=== PATIENT | female | born 1960 | race Caucasian/White ===

== ENCOUNTER 2021-12-19 13:45 | Outpatient (CLI) | payer MEDICARE, BC, SELFPAY ==
--- NOTE | 2021-12-19 14:00 | CRLHL7_ITS ---
For Patients: As a result of the Century Cures Act, medical imaging exams and procedure reports are released immediately into your electronic medical record. You may view this report before your referring provider. If you have questions, please contact your health care provider. BILATERAL SCREENING MAMMOGRAM WITH COMPUTER-AIDED DETECTION AND TOMOSYNTHESIS TECHNIQUE: CC and MLO views were obtained. These mammographic images have been obtained using full-field digital technique. These mammographic images were interpreted with the benefit of computer-aided detection. Breast Tomosynthesis was used in this interpretation. COMPARISON FILM: 12/10/18, 10/15/17, 09/19/16. FINDINGS: There are scattered areas of fibroglandular density IMPRESSION: There is no radiographic evidence for malignancy. ASSESSMENT: BI-RADS Category 2: Benign RECOMMENDATION: Routine screening mammogram in 1 year. A lay language report of this examination will be provided to the patient. Michael Caballero M.D. Diagnostic Radiologist [email or web address] LEEANN/Dictated by: Michael Caballero MD @ 12/20/2021 9:09:00 AM (Electronically Signed)
== END 2021-12-19 13:46 | disposition home or self-care (01) ==
LOC: MAMMO 13:46
PROVIDERS: PCP Internal Medicine; Visit Provider Nurse Practitioner Family
DX: Z12.31 Encounter for screening mammogram for malignant neoplasm of breast (principal)
CPT/HCPCS: 77063; 77067

== ENCOUNTER 2022-12-20 13:54 | Outpatient (CLI) | payer MEDICARE, BC, SELFPAY ==
--- NOTE | 2022-12-20 14:00 | CRLHL7_ITS ---
For Patients: As a result of the Cures Act, medical imaging exams and procedure reports are released immediately into your electronic medical record. You may view this report before your referring provider. If you have questions, please contact your health care provider. BILATERAL SCREENING MAMMOGRAM WITH COMPUTER-AIDED DETECTION AND TOMOSYNTHESIS TECHNIQUE: CC and MLO views were obtained. These mammographic images have been obtained using full-field digital technique. These mammographic images were interpreted with the benefit of computer-aided detection. Breast Tomosynthesis was used in this interpretation. COMPARISON FILM: 12/19/21, 12/10/18, 10/15/17. FINDINGS: There are scattered areas of fibroglandular density IMPRESSION: There is no radiographic evidence for malignancy. ASSESSMENT: BI-RADS Category 2: Benign RECOMMENDATION: Routine screening mammogram in 1 year. A lay language report of this examination will be provided to the patient. Michael Caballero M.D. Diagnostic Radiologist [email or web address] SONIA/rolando Transcribed: 3:40 p.mSamantha marshall/Dictated by: Michael Caballero MD @ 12/21/2022 12:42:00 PM (Electronically Signed)
== END 2022-12-20 13:55 | disposition home or self-care (01) ==
LOC: MAMMO 13:56
PROVIDERS: PCP Internal Medicine; Visit Provider Nurse Practitioner Family
DX: Z12.31 Encounter for screening mammogram for malignant neoplasm of breast (principal)
CPT/HCPCS: 77063; 77067

== ENCOUNTER 2023-02-07 13:55 | Outpatient (CLI) | payer MEDICARE, BC, SELFPAY ==
--- NOTE | 2023-02-07 14:00 | CRLHL7_ITS ---
For Patients: As a result of the Century Cures Act, medical imaging exams and procedure reports are released immediately into your electronic medical record. You may view this report before your referring provider. If you have questions, please contact your health care provider. 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 Current height (in): 63.5. Weight (lb): 220.0. Menopause age: 47. Ethnicity: White. 1. Have you had a previous hip or vertebral fracture? No. 2. Have you had any fractures during your adult life which did not result from significant trauma (e.g., auto accident)? No. 3. Did either of your parents have a hip fracture? No. 4. Do you smoke? No. 5. Have you ever taken Glucocorticoids? No. 6. Do you have rheumatoid arthritis? No. 7. Do you have secondary osteoporosis? No. 8. Do you drink 3 or more alcoholic drinks per day? No. 9. Are you being treated for osteoporosis? No. 10. Have you ever taken any of the following medications: Actonel, Evista, Fosamax, Miacalcin, Reclast, Boniva, Forteo, HRT (i.e. estrogen/hormone therapy), Protelos, Prolia, Vitamin D, Calcium, other ??? please specify. ANSWER: Yes, Vitamin D, calcium. 11. Do you have any of the following medical conditions: Anorexia or bulimia, asthma or emphysema, end stage renal disease, hyperparathyroidism, any seizure disorders, cancer, inflammatory bowel diseases, hysterectomy, other ??? please specify. ANSWER: Yes, asthma or emphysema. 12. What was your maximum height (inches)? 65. 13. Do you perform weight bearing exercise regularly? No. 14. Do you regularly consume dairy products? Yes. 15. Do you drink caffeinated beverages? Yes. 16. At what age did your period start? 16. 17. Are you premenopausal? No. 18. How many full term pregnancies have you had? 0 19. Have you ever missed your period for more than 6 months in a row (not including or menopause)? No. TECHNIQUE: Bone mineral density study was performed using the [employer]. FINDINGS: The results of the study expressed as bone mineral density (BMD) are as follows: Lumbar spine L2 to L4: BMD: 1.207 g/cm2. T-score: 1.2. Z-score: 2.7 Neck Left: BMD: 0.788 g/cm2. T-score: -0.5. Z-score: 0.8. Right: BMD: 0.712 g/cm2. T-score: -1.2. Z-score: 0.1. Total Left: BMD: 1.009 g/cm2. T-score: 0.6. Z-score: 1.5. Right: BMD: 0.885 g/cm2. T-score: -0.5. Z-score: 0.5. IMPRESSION: Osteopenia. *Comparison exams done prior to 08/2019 were performed on different unit, [employer]. COMPARISON: Compared with scan of 02/15/2021, the bone mineral density has increased by 9.2 percent at the spine and increased by 8.9 percent at the hip. Compared with scan of 02/12/2019, the bone mineral density has decreased by 0.4 percent at the spine and increased by 8.8 percent at the hip. FRAX 10-year Fracture Risk Major Osteoporotic Fracture: 6.7 percent Hip Fracture: 0.4 percent Reported Risk Factors: [place] () Neck BMD=0.712, BMI=38.4 Michael Caballero M.D. Diagnostic Radiologist [email or web address] DSM/pjt PT/Dictated by: Michael Caballero MD @ 02/08/2023 12:34:00 PM (Electronically Signed)
== END 2023-02-07 13:56 | disposition home or self-care (01) ==
LOC: RAD 13:55
PROVIDERS: PCP Internal Medicine; Visit Provider Nurse Practitioner Family
DX: Z79.811 Long term (current) use of aromatase inhibitors (principal); M85.89 Other specified disorders of bone density and structure, multiple sites
CPT/HCPCS: 77080

== ENCOUNTER 2023-03-14 14:50 | Outpatient (RCR) | payer MEDICARE, BC, SELFPAY | END 2023-03-27 23:59 | disposition home or self-care (01) | LOC: CCIC 14:50 | PROVIDERS: PCP Internal Medicine; Visit Provider Physician Assistant | DX: D05.12 Intraductal carcinoma in situ of left breast (principal); Z17.0 Estrogen receptor positive status [ER+]; Z79.811 Long term (current) use of aromatase inhibitors; M85.80 Other specified disorders of bone density and structure, unspecified site; F31.9 Bipolar disorder, unspecified | CPT/HCPCS: 99212; 99214 ==

== ENCOUNTER 2023-09-10 14:00 | Outpatient (RCR) | payer MEDICARE, BC, SELFPAY ==
--- NOTE | 2023-08-09 07:29 | PT.OPEX ---
PT [facility] Eval PT [facility] Outpatient Eval Start: 08/08/23 10:40 Freq: Status: Active Protocol: Document 08/08/23 10:41 CRP (Rec: 08/08/23 15:47 CRP [id number]) E-signed By Eduardo Bolanos PT Physical Therapy Outpatient Evaluation Insurance Information Recert Due Date 11/06/23 Insurance Name Medicare B Medical Diagnosis LBP Referring MD Dr Sykes Subjective Subjective Pt has been having sharp severe pain at low back and off to the L side. Has been since this Winter. No known injury. Pain is along the left flank and down into the L thigh. Is taking over the counter NSAIDS. Pt reports that mornings are severely painful at her back. Overall she is improved and she has not been getting recent pain down her LE. Although improved , she still struggles with getting out to do anything. Especially things where she will need to stand and mill around. Sitting is the most comfortable. Holding onto cart at grocery store is really helpful. Pt has had back pain off and on for 30+ years. Bilat TKA: 2015, 2018 Pain Comments 11/08 Current Work Status Unemployed Objective Other/Pertinent Objective Trunk ROM: flex WNL, Ext mod/ kayy dec, R SB WNL, L SB mod dec with pain. Bilat rot min/ mod dec. Hip ROM WNL bilat MMT: myotomes functioning. BIlat hip ext and bilat hip abd 4-/5. Trunk flex 3+/5. Trunk ext 4-/5. SLR negative bilat Segmental mobility testing: shows restriction without pain into L rotation. SL UPAs L lower lumbar spine painful. Assessment Assessment/Impression Pt presents to the clinic with signs and sxs consistent with lumbar spine stenosis and resulting low back related LE sxs. Pts presentation is characterized by painful loss of trunk ROM, trunk and LE weakness, painful hypomobility of the lower lumbar spine segments and is generally deconditioned. Skilled PT is necessary to incorporate ther ex, nm sterling, manual therapy and pt education to decrease pain and improve functional mobility. Primary Functional Limitations Standing Walking Bending Lifting Plan of Care Rehabilitation Potential Good Physical Therapy Goals 1. Pt will be independent with HEP in 8 weeks. 2. Pt will walk for 15 minutes for exer with 80% decrease in pain in 10 weeks. 3. 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 Coordination/Communication With Referral Source Treatment Plan/Direct Interventions Joint Mobilization,Manual Therapy,Neuromuscular Re-ed, Self-Care/Home Management, Therapeutic Activities, Therapeutic Exercises Frequency/Duration 1-2x/wk for 12 weeks Patient Will Be Discharged From Therapy Completion of LTG(s),Skills Plateau,Independent w/HEP, Independently Progressing Evaluation Billing Untimed Code Treatment Minutes 40 Complexity Moderate Certification Information Initial Certification Date 08/08/23 Ending Certification Date 11/06/23 Provider Signature Shows Agreement With POC & Medical Necessity Physician Signature & Date Requested Please Sign/Date Here Physician Comment/Change : Physician NPI Number #
== END 2024-01-08 23:59 | disposition home or self-care (01) ==
PROVIDERS: PCP Internal Medicine; Visit Provider Family Medicine
DX: M54.50 Low back pain, unspecified (principal); Z51.89 Encounter for other specified aftercare
CPT/HCPCS: 97110; 97140; 97162

== ENCOUNTER 2023-09-12 13:59 | Outpatient (RCR) | payer MEDICARE, BC, SELFPAY ==
--- NOTE | 2024-03-06 13:25 | ONC.NURNOTE ---
Patient called wondering if she is able to stop her anastrozole now that she is five years out. Note from CINDY was printed and will be reviewed with her on . Patient aware that nursing will call following this conversation.
== END 2024-03-10 23:59 | disposition home or self-care (01) ==
LOC: CCIC 13:59
PROVIDERS: PCP Internal Medicine; Visit Provider Physician Assistant
DX: D05.12 Intraductal carcinoma in situ of left breast (principal); Z17.0 Estrogen receptor positive status [ER+]; M85.80 Other specified disorders of bone density and structure, unspecified site; Z79.811 Long term (current) use of aromatase inhibitors
CPT/HCPCS: 99214; G0463

== ENCOUNTER 2023-12-04 13:49 | Outpatient (CLI) | payer MEDICARE, BC, SELFPAY ==
--- OUTSIDE RECORDS SUMMARY | 2023-12-04 13:51 | XMS_ITS | Clinical Summary ---
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 Max acetaminophen dose: 4000mg in 24 hrs. 0 Active anastrozole (ARIMIDEX) 1 mg tablet Take 1 mg by mouth once daily. 3 02/17/2019 Active benztropine (COGENTIN) 1 mg tabletIndications: Drug-induced parkinsonism (HC) Take 1 Tablet (1 mg) by mouth at bedtime. 90 Tablet 1 06/23/2020 Active clonazePAM (KLONOPIN) 1 mg tabletIndications: Bipolar 1 disorder (HC) Take 1 Tablet (1 mg) by mouth 2 times daily if needed for Anxiety. 30 tablets to last 30 days. 30 tablet. 5 06/23/2020 Active escitalopram oxalate (LEXAPRO) 20 mg tabletIndications: Anxiety Take 1 Tablet (20 mg) by mouth every morning. 90 tablet. 1 06/23/2020 Active risperiDONE (RISPERDAL) 2 mg tabletIndications: Bipolar 1 disorder (HC) Take 1 Tablet (2 mg) by mouth 2 times daily. 180 tablet. 1 06/23/2020 Active zonisamide (ZONEGRAN) 100 mg capsuleIndications :Essential tremor TAKE 2 CAPSULES BY MOUTH AT BEDTIME 180 Capsule 09/27/2020 Active mirtazapine (REMERON) 15 mg tabletIndications: Bipolar 1 disorder (HC),Anxiety,Insom jazmine, idiopathic TAKE 1 TABLET(15 MG) BY MOUTH AT BEDTIME 30 Tablet 10/01/2020 Active fluticasone (50 mcg per actuation) nasal solution (FLONASE)Indicatio ns:Seasonal allergic rhinitis due to pollen SHAKE LIQUID AND USE 2 SPRAYS IN EACH NOSTRIL DAILY 48 g 1 01/03/2021 Active montelukast (SINGULAIR) 10 mg tabletIndications: Seasonal allergic rhinitis due to pollen TAKE 1 TABLET(10 MG) BY MOUTH EVERY MORNING 90 Tablet 06/25/2021 Active Active Problems Problem Noted Date Diagnosed Date 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 03/16/2020 Ductal carcinoma in situ (DCIS) of breast 2018 Cancer Staging:Pathologic: pT1mi, pN0, cM0, G2, ER+ - Signed by Milady Siu MD on 01/09/2019 Status post total knee replacement, unspecified laterality 09/03/2018 Controlled substance agreement signed 09/11/2017 Overview: 09/11/17 signed Minnie Taveras MD/psychiatry Bipolar 1 disorder 08/14/2016 Psychophysiological insomnia 08/14/2016 Drug-induced parkinsonism 08/14/2016 History of extrapyramidal symptoms 08/14/2016 Immunizations Name Administration Dates Next Due Influenza Virus, Unspecified 01/07/2020, 12/07/2017,01/16/2017,2015,01/13/2015 Influenza, IIV3 (Age 6-35 mos) 01/16/2017 Influenza, IIV4 12/22/2015 Influenza, IIV4 (=>6mos) MDV 12/26/2018,12/21/19 Pneumococcal Poly,23-Valent (Pneumovax) 06/18/2018 Tdap 07/07/2018 Zoster (Shingrix-RZV, recombinant) 09/17/2018, Family History Medical History Relation Name Comments Brain cancer Maternal Grandfather Abnormal EKG Paternal Grandfather Cancer Paternal Grandmother digesti ve tract Cancer-breast No Family History Cancer-colon No Family History Cancer-ovarian No Family History Cancer-pancreatic No Family History Cancer-prostate No Family History Melanoma No Family History Relation Name Status Comments Maternal Grandfather Paternal Grandfather Paternal Grandmother Social History Tobacco Use Types Packs/Day Years Used Date Smoking Tobacco: Former Cigarettes 1 983 - 2001 Smokeless Tobacco: Never Tobacco Cessation:Counseling Given: Yes Alcohol Use Standard Drinks/Week Comments Not Currently 0 (1 standard drink = 0.6 oz pur e alcohol) Very occasional PHQ-2 Answer Date Recorded PHQ-2 TOTAL SCORE 2 06/23/2020 Social Connections Answer Date Recorded Frequency of Communication with Friends and Fami ly Not on file 04/01/2021 Financial Resource Strain Answer Date R ecorded Difficulty of Paying Living Expenses Not on file 04/01/2021 Difficulty of Paying Living Expenses Not on file 04/01/2021 Sex and Gender Information Value Date Recorded Sex Assigned at Female 01/22/2020 1:27 PM CDT Gender Identity Female 01/22/2020 1:27 PM CDT Sexual Orientation Straight 01/22/2020 1: 27 PM CDT Obstetrics History Para Term AB IAB SAB Ectopic Multiple Livin g Live Births 0 0 0 0 0 0 0 0 0 0 Last Filed Vital Signs Vital Sign Reading Time Taken Comments Blood Pressure 116/75 07/07/2020 1:19 PM CDT Pulse 99 07/07/2020 1:19 PM CDT Temperature 37 ??C (98.6 ??F) 12/15/2020 3:12 PM CDT Respiratory Rate 16 12/15/2020 3:12 PM CDT Oxygen Saturation 95% 07/07/2020 1:19 PM CDT Inhaled Oxygen Concentration - - Weight 102.5 kg (226 lb) 12/15/2020 3:12 PM CDT Height 163.8 cm (5' 4.5) 12/15/2020 3:12 PM CDT Body Mass Index 38.19 12/15/2020 3:12 PM CDT Plan of Treatment Health Maintenance Due Date Last Done Comments HIV for age 15-65 1977 Hepatitis C screening for age 18-79 1980 Fecal testing non-DNA (FIT,FOBT,iFOBT) for age 45-75 01/28/2021 01/29/2020, 09/10/2016 Depression screening for age 12+ 06/27/2021 06/27/2020, 06/24/2020, 06/24/2020, Additional history exists BMI (ht and wt on same day) for age 18+ 12/15/2021 12/15/2020, 06/14/2020, 02/11/2020, Additional history exists Mammogram for age 45-75 12/15/2021 12/16/19 21, 12/15/2019, 07/30/2019, Additional history exists COVID-19 vaccine series ( season) 2023 07/12/2020, 06/10/2020 Influenza for age 50-64 12/01/2023 01/07/20, 12/26/2018, 12/20/2017, Additional history exists Pap test for age 21-65 12/08/2023 , 12/07/2020, 09/29/2020, Additional history exists Lipids for age 45-75 04/28/2025 04/28/2020, 01/01/2019, 09/27/2017 Tetanus booster 07/07/2028 07/07/2018 Pneumococcal series for age 6-64 Aged Out 06/18/2018 No longer eligible based on patient's age to complete this topic Tdap Completed 07/07/2018 Zoster (shingles) series for age 50+ Completed 09/17/2018, 06/18/2018 Procedures Procedure Name Priority Date/Time Associated Diagnosis Comments XR MAMMO JAVON BILAT SCREEN Routine 12/15/2020 2:59 PM CDT Visit for screening mammogram Personal history of malignant neoplasm of breast HPV THIN PREP Routine 12/07/2020 1:10 PM CDT LIPID PANEL W REFLEX MEASURED LDL Routine 04/28/2020 11:04 AM 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 ??Recommend annual mammograms. MAMMOGRAM ASSESSMENT: ??ACR 1 Negative PATIENTS: You will also receive a letter with your examination results in an easy to read format. ??If you have questions about your results, please contact your referring provider. Narrative 12/15/2020 3:07 PM CDT For Patients: As a result of the Century Cures Act, medical imaging exams and procedure reports are released immediately into your electronic medical record. You may view this report before your referring provider. If you have questions, please contact your health care provider. XR MAMMO JAVON BILAT SCREEN [[id number]] CLINICAL HISTORY: ??This is an asymptomatic 60 y.o. patient. INDICATION FOR EXAM: Mammogram Screening. TECHNIQUE: CC & MLO views were obtained. ??This study was evaluated with the assistance of Computer-Aided Detection. Breast Tomosynthesis was used in interpretation. COMPARISON FILM: Yes 12/15/19 [place] ?? FINDINGS: ??The breasts have scattered areas of fibroglandular density. There are no dominant masses, suspicious micro calcifications or areas of architectural distortion. Shahla Mcclellan RN LICENSED PRACTICAL MAMMO * HPV HIGH RISK (12/07/2020 1:10 PM CDT) TYPE 16 Negative Negative 12/12/2020 11:22 AM CDT [facility] TYPE 18 Negative Negative 12/12/2020 11:22 AM CDT [facility] OTHER HIGH RISK TYPES Negative Negative 12/12/2020 11:22 AM CDT [facility] Other (Cervical/Vagina l) 12/07/2020 1:10 PM CDT 12/08/2020 5:12 PM CDT Narrative [facility] - 12/12/2020 11:22 AM CDT HPV types 16, 18, 31, 33, 35, 39, 45, 51, 52, 56, 58, 59, 66 and 68 DNA were undetectable or below the pre-set threshold. Methodology: Ruth Amina 4800 HPV Test Lisa Hawkins MD MICROBIOLOGY [facility] [address] [place] [address], [place] * LIPID PANEL W REFLEX MEASURED LDL (04/28/2020 11:04 AM BAND SEWER) CHOLESTEROL,TOTAL 176 100 - 199 mg/dL 04/28/2020 5:11 PM BAND SEWER [facility] TRIGLYCERIDES 95 <150 mg/dL 04/28/2020 5:11 PM BAND SEWER [facility] HDL CHOLESTEROL 56 >40 mg/dL 5:11 PM BAND SEWER [facility] NON-HDL CHOLESTEROL 120 <145 mg/dl 04/28/2020 5:11 PM BAND SEWER [facility] CHOL/HDL RATIO 3.14 <4.50 04/28/2020 5:11 PM BAND SEWER [facility] LDL CHOLESTEROL 101 <=130 mg/dL 04/28/2020 5:11 PM BAND SEWER [facility] PROVIDER ORDERED STATUS RANDOM 04/28/2020 5:11 PM BAND SEWER [facility] Blood BLOOD SPECIMEN / Unknown Venipuncture / Unknown 04/28/2020 11:04 AM BAND SEWER 04/28/2020 11:04 AM BAND SEWER Minnie Taveras MD CHEMISTRY [facility] [address] [place] [address], [place] * OCCULT BLOOD IFOBT STOOL (01/29/2020 12:53 PM CDT) STOOL BLOOD ,IFOBT Negative Negative 02/05/2020 7:34 AM BAND SEWER [facility] Stool STOOL SPECIMEN / Unknown Non-Blood / Unknown 01/29/2020 12:53 PM CDT 02/03/2020 12:53 PM BAND SEWER Michael Dotson MD [facility] [address] [facility] [place] [address], from Last 3 Months or Most Recently Relevant to Health Maintenance Advance Directives * Full Code (Latest Code Status on File) Date Activated Date Inactivated Comments 01/02/2019 11:41 AM 01/02/2019 8:49 PM Care Teams 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
--- NOTE | 2023-12-04 14:15 | CRLHL7_ITS ---
For Patients: As a result of the Cures Act, medical imaging exams and procedure reports are released immediately into your electronic medical record. You may view this report before your referring provider. If you have questions, please contact your health care provider. Indication: Joint arthroplasty followup Technique: Three views left knee and one view right knee Comparison: 12/13/2020 Findings/Impression: Hardware from a joint arthroplasty is in satisfactory position without evidence of loosening or infection. Alignment is normal. No sign of acute fracture. No significant changes from the prior exam. Dictated by Michael Caballero MD @ 12/04/2023 3:51:03 PM (Electronically Signed)
== END 2023-12-04 13:50 | disposition home or self-care (01) ==
LOC: RAD 13:50
PROVIDERS: PCP Internal Medicine; Visit Provider Orthopaedic Surgery
DX: Z96.652 Presence of left artificial knee joint (principal)
CPT/HCPCS: 73562

== ENCOUNTER 2024-02-18 14:27 | Outpatient (CLI) | payer MEDICARE, BC, SELFPAY ==
--- OUTSIDE RECORDS SUMMARY | 2024-02-18 14:30 | XMS_ITS | Clinical Summary ---
Author Organization [employer] [facility] [employer] Address [place], [place] [address] Care Team Providers Care Sander Hand Name Role Phone Octavio Hatfield MD Primary Care Provider [phone] Allergies Active Allergy Reactions Criticality Noted Date [...] laterality 09/03/2018 Controlled substance agreement signed 09/11/2017 Overview (09/11/2017): 09/11/17 signed Minnie Taveras MD/psychiatry Bipolar 1 [...] Used Date Smoking Tobacco: Former Cigarettes 1 3 - 2001 Smokeless Tobacco: Never Tobacco Cessation:Counseling [...] 99 07/07/2020 1:19 PM CDT Temperature 37 C (98.6 F) 12/15/2020 3:12 PM CDT Respiratory Rate 16 [...] 07/30/2019, Additional history exists COVID-19 vaccine series (2023- season) 2023 07/12/2020, 06/10/2020 Influenza for age [...] history of malignant neoplasm of breast HPV HIGH RISK Routine 12/07/2020 1:10 PM CDT LIPID PANEL W REFLEX MEASURED LDL Routine 04/28/2020 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 Recommend annual mammograms. MAMMOGRAM ASSESSMENT: ACR 1 Negative PATIENTS: You will also receive a letter with your examination results in an easy to read format. If you have questions about your results, please [...] care provider. XR MAMMO JAVON BILAT SCREEN [[id number]] CLINICAL HISTORY: This is an asymptomatic 60 y.o. patient. INDICATION FOR EXAM: Mammogram Screening. TECHNIQUE: CC & MLO views were obtained. This study was evaluated with the assistance of Computer-Aided Detection. Breast Tomosynthesis was used in interpretation. COMPARISON FILM: [facility] FIND[facility]: The breasts have scattered areas of fibroglandular density. There are no dominant masses, suspicious micro calcifications or areas of architectural distortion. Shahla Mcclellan CTO MAMMO * HPV HIGH RISK (12/07/2020 1:10 PM CDT) TYPE 16 Negative Negative 12/12/2020 11:22 AM CDT [facility] TYPE 18 Negative Negative 12/12/2020 11:22 AM CDT [facility] OTHER HIGH RISK TYPES Negative Negative 12/12/2020 11:22 AM CDT [facility] Other (Cervical/Vagina l) 12/07/2020 1:10 PM CDT 12/08/2020 5:12 PM CDT Narrative [facility] - 12/12/2020 11:22 AM CDT HPV types 16, 18, 31, 33, 35, 39, 45, 51, 52, 56, 58, 59, 66 and 68 DNA were undetectable or below the pre-set threshold. Methodology: Ruth Amina 4800 HPV Test Lisa Hawkins MD MICROBIOLOGY Performing Organization Address City/[facility]/ZIP Co de Phone Number [facility] [address] [place] [address], * LIPID PANEL W REFLEX MEASURED LDL (04/28/2020 11:04 AM TRUCK DRIVING INSTRUCTOR) CHOLESTEROL,TOTAL 176 100 - 199 mg/dL 04/28/2020 5:11 PM TRUCK DRIVING INSTRUCTOR [facility] TRIGLYCERIDES 95 <150 mg/dL 04/28/2020 5:11 PM TRUCK DRIVING INSTRUCTOR [facility] HDL CHOLESTEROL 56 >40 mg/dL 5:11 PM TRUCK DRIVING INSTRUCTOR [facility] NON-HDL CHOLESTEROL 120 <145 mg/dl 04/28/2020 5:11 PM TRUCK DRIVING INSTRUCTOR [facility] CHOL/HDL RATIO 3.14 <4.50 04/28/2020 5:11 PM TRUCK DRIVING INSTRUCTOR [facility] LDL CHOLESTEROL 101 <=130 mg/dL 04/28/2020 5:11 PM TRUCK DRIVING INSTRUCTOR [facility] PROVIDER ORDERED STATUS RANDOM 04/28/2020 5:11 PM TRUCK DRIVING INSTRUCTOR [facility] Blood BLOOD SPECIMEN / Unknown Venipuncture / Unknown 04/28/2020 11:04 AM TRUCK DRIVING INSTRUCTOR 04/28/2020 11:04 AM TRUCK DRIVING INSTRUCTOR Minnie Taveras MD [facility] [address] [place] [address], * OCCULT BLOOD IFOBT STOOL (01/29/2020 12:53 PM CDT) STOOL BLOOD ,IFOBT Negative Negative 02/05/2020 7:34 AM TRUCK DRIVING INSTRUCTOR [facility] Stool STOOL SPECIMEN / Unknown Non-Blood / Unknown 01/29/2020 12:53 PM CDT 02/03/2020 12:53 PM TRUCK DRIVING INSTRUCTOR Michael Dotson MD LABORATORY [facility] [address] [place] [address], from Last 3 Months or Most Recently Relevant to Health Maintenance Advance Directives * Full Code (Latest Code Status on File) Date Activated Date Inactivated Comments 01/02/2019 11:41 AM 01/02/2019 8:49 PM Care Teams Sander Hand Relationship Specialty Start Date End Date Octavio Hatfield MD [address] [place] [address] PCP - General Internal Medicine 12/07/20
--- NOTE | 2024-02-18 14:40 | CRLHL7_ITS ---
For Patients: As a result of the Cures Act, medical imaging exams and procedure reports are released immediately into your electronic medical record. You may view this report before your referring provider. If you have questions, please contact your health care provider. BILATERAL SCREENING MAMMOGRAM WITH COMPUTER-AIDED DETECTION AND TOMOSYNTHESIS TECHNIQUE: CC and MLO views were obtained. These mammographic images have been obtained using full-field digital technique. These mammographic images were interpreted with the benefit of computer-aided detection. Breast Tomosynthesis was used in this interpretation. COMPARISON FILM: 12/20/22, 12/19/21, 12/10/18. FINDINGS: There are scattered areas of fibroglandular density IMPRESSION: There is no radiographic evidence for malignancy. ASSESSMENT: BI-RADS Category 2: Benign RECOMMENDATION: Routine screening mammogram in 1 year. A lay language report of this examination will be provided to the patient. Michael Caballero M.D. Diagnostic Radiologist [email or web address] Transcribed: 2:11 p.rahul marshall/Dictated by: Michael Caballero MD @ 02/20/2024 11:06:00 AM (Electronically Signed)
== END 2024-02-18 14:28 | disposition home or self-care (01) ==
LOC: MAMMO 14:28
PROVIDERS: PCP Internal Medicine; Visit Provider Physician Assistant
DX: Z12.31 Encounter for screening mammogram for malignant neoplasm of breast (principal)
CPT/HCPCS: 77063; 77067

== ENCOUNTER 2024-02-20 14:02 | Outpatient (CLI) | payer MEDICARE, BC, SELFPAY ==
--- OUTSIDE RECORDS SUMMARY | 2024-02-23 09:58 | XMS_ITS | Clinical Summary ---
Author Organization [employer] [facility] Address [place], [place] [address] Care Team Providers Care Bloom Conveyor Operator Name Role Phone Octavio Hatfield MD Primary Care Provider [phone] Allergies Active Allergy Reactions Criticality Noted Date [...] REFLEX MEASURED LDL Routine 04/28/2020 11:04 AM CONTROL OPERATOR FLOW COAT Other senior care (current) drug therapy OCCULT BLOOD IFOBT STOOL [...] care provider. XR MAMMO JAVON BILAT SCREEN [[id number]] CLINICAL HISTORY: This is an asymptomatic 60 y.o. patient. INDICATION FOR EXAM: Mammogram Screening. TECHNIQUE: CC & MLO views were obtained. This study was evaluated with the assistance of Computer-Aided Detection. Breast Tomosynthesis was used in interpretation. COMPARISON FILM: Yes 12/15/19 [facility] FINDINGS: The breasts have scattered areas of fibroglandular density. There are no dominant masses, suspicious micro calcifications or areas of architectural distortion. Shahla Mcclellan MANAGER TALENT MANAGEMENT MAMMO * HPV HIGH RISK (12/07/2020 1:10 PM CDT) TYPE 16 Negative Negative 12/12/2020 11:22 AM CDT [facility] [place] [facility] TYPE 18 Negative Negative 12/12/2020 11:22 AM CDT [facility] [facility] OTHER HIGH RISK TYPES Negative Negative 12/12/2020 11:22 AM CDT [facility] Other (Cervical/Vagina l) 12/07/2020 1:10 PM CDT 12/08/2020 5:12 PM CDT Narrative [facility] - 12/12/2020 11:22 AM CDT HPV types 16, 18, 31, 33, 35, 39, 45, 51, 52, 56, 58, 59, 66 and 68 DNA were undetectable or below the pre-set threshold. Methodology: Ruth Amina 4800 HPV Test Lisa Hawkins MD MICROBIOLOGY Performing Organization Address City/[facility]/ZIP Co de Phone Number [facility] [address] [place] [address], * LIPID PANEL W REFLEX MEASURED LDL (04/28/2020 11:04 AM CONTROL OPERATOR FLOW COAT) CHOLESTEROL,TOTAL 176 100 - 199 mg/dL 04/28/2020 5:11 PM CONTROL OPERATOR FLOW COAT [facility] [place] [facility] TRIGLYCERIDES 95 <150 mg/dL 04/28/2020 5:11 PM CONTROL OPERATOR FLOW COAT [facility] [place] [facility] HDL CHOLESTEROL 56 >40 mg/dL 5:11 PM CONTROL OPERATOR FLOW COAT [facility] [place] [facility] NON-HDL CHOLESTEROL 120 <145 mg/dl 04/28/2020 5:11 PM CONTROL OPERATOR FLOW COAT [facility] [place] [facility] CHOL/HDL RATIO 3.14 <4.50 04/28/2020 5:11 PM CONTROL OPERATOR FLOW COAT [facility] [place] [facility] LDL CHOLESTEROL 101 <=130 mg/dL 04/28/2020 5:11 PM CONTROL OPERATOR FLOW COAT [facility] [place] [facility] TR[facility] PROVIDER ORDERED STATUS RANDOM 04/28/2020 5:11 PM CONTROL OPERATOR FLOW COAT [facility] [place] [facility] Blood BLOOD SPECIMEN / Unknown Venipuncture / Unknown 04/28/2020 11:04 AM CONTROL OPERATOR FLOW COAT 04/28/2020 11:04 AM CONTROL OPERATOR FLOW COAT Minnie Taveras MD [facility] [address] [place] [address], * OCCULT BLOOD IFOBT STOOL (01/29/2020 12:53 PM CDT) STOOL BLOOD ,IFOBT Negative Negative 02/05/2020 7:34 AM CONTROL OPERATOR FLOW COAT [facility] Stool STOOL SPECIMEN / Unknown Non-Blood / Unknown 01/29/2020 12:53 PM CDT 02/03/2020 12:53 PM CONTROL OPERATOR FLOW COAT Michael Dotson MD [facility] [address] [place] [address], from Last 3 Months or Most Recently Relevant to Health Maintenance Advance Directives * Full Code (Latest Code Status on File) Date Activated Date Inactivated Comments 01/02/2019 11:41 AM 01/02/2019 8:49 PM Care Teams Bloom Conveyor Operator Relationship Specialty Start Date End Date Octavio Hatfield MD [address] [place] [address] PCP - General Internal Medicine 12/07/20
== END 2024-02-20 14:03 | disposition home or self-care (01) ==
LOC: NFLDREF 02-23 09:56
PROVIDERS: PCP Internal Medicine; Visit Provider Internal Medicine
DX: Z13.6 Encounter for screening for cardiovascular disorders (principal); Z13.9 Encounter for screening, unspecified
CPT/HCPCS: 80053; 80061

== ENCOUNTER 2024-05-19 14:45 | Outpatient (RCR) | payer MEDICARE, BC, SELFPAY | END 2024-05-20 08:11 | disposition home or self-care (01) | PROVIDERS: PCP Internal Medicine; Visit Provider Orthopaedic Surgery Sports Medicine | DX: M16.11 Unilateral primary osteoarthritis, right hip (principal); M25.511 Pain in right shoulder; M25.551 Pain in right hip; M62.81 Muscle weakness (generalized); Z74.09 Other reduced mobility; Z51.89 Encounter for other specified aftercare | CPT/HCPCS: 97110; 97162 ==

== ENCOUNTER 2024-09-07 13:30 | Outpatient (RCR) | payer MEDICARE, BC, SELFPAY ==
--- NOTE | 2024-03-12 15:17 | ONC.NURNOTE ---
Pt inquiring if she can stop the anastrozole, per Tarah Rogers PA-C, pt should see a provider to discuss. Pt scheduled for 04/09/24.
--- NOTE | 2024-05-14 16:03 | PC.SOCIAL ---
Addendum entered by MARIELA Buchanan 05/14/24 16:13: Social work consult: Pt had stated over the phone on 05/13/24 that she was interested in obtaining an individual mental health therapist and joining some groups so that she can make friends. Social work to follow-up as needed. Original Note: Social work consult: leadite worker spoke to pt on 05/13/2024 via phone after receiving a social service consult for the pt from Dr. Hatfield in the clinic. leadite worker provided the pt with information on community resources; including, information on programs at the [facility] [place] and [facility]. leadite worker plans to follow-up with the pt again on Monday 05/15 with information on individual mental health therapists in [facility] and possibly joining [facility].(pt should qualify for [facility] with her Bi-polar diagnosis). Social work to follow-up as needed.
--- NOTE | 2024-05-15 15:06 | PC.SOCIAL ---
Social work consult: web worker talked to pt again today over the phone and told her about [employer] in [facility]. Pt is interested in this service and possibly doing [facility]) groups and individual meetings. web worker gave the pt the number for [employer]. #[phone] and she will call them on Saturday for a self referral. Pt also gave this worker her email address [email or web address] for possible further resource information. Social work to follow-up as needed.
== END 2024-10-06 23:59 | disposition home or self-care (01) ==
LOC: CCIC 13:30
PROVIDERS: PCP Internal Medicine; Visit Provider Physician Assistant
DX: D05.12 Intraductal carcinoma in situ of left breast (principal); Z17.0 Estrogen receptor positive status [ER+]
CPT/HCPCS: 99213; 99214; G0463

== ENCOUNTER 2025-01-21 14:33 | Outpatient (CLI) | payer MEDICARE, BC, SELFPAY | END 2025-01-21 14:34 | disposition home or self-care (01) | PROVIDERS: PCP Internal Medicine; Visit Provider Internal Medicine | DX: Z13.9 Encounter for screening, unspecified (principal) | CPT/HCPCS: 80053; 80061 ==

== ENCOUNTER 2025-03-04 13:43 | Outpatient (CLI) | payer MEDICARE, BC, SELFPAY ==
--- NOTE | 2025-03-04 14:00 | CRLHL7_ITS ---
For Patients: As a result of the Century Cures Act, medical imaging exams and procedure reports are released immediately into your electronic medical record. You may view this report before your referring provider. If you have questions, please contact your health care provider. INDICATION: BILATERAL SCREENING MAMMOGRAM, ASYMPTOMATIC 64 Y/O FEMALE COMPARISON: 02/18/2024, 12/20/2022, 12/19/2021 TECHNIQUE: Digital mammogram in CC and MLO projections including computer-aided detection (CAD) and tomosynthesis. BREAST COMPOSITION: There are scattered areas of fibroglandular density. FINDINGS: No suspicious findings. ASSESSMENT: BI-RADS 2 Benign RECOMMENDATION: Annual screening mammogram. A lay language report of this examination will be provided to the patient. Dictated by: Michael Caballero MD @ 03/05/2025 08:51:32 (Electronically Signed)
== END 2025-03-04 13:44 | disposition home or self-care (01) ==
PROVIDERS: PCP Internal Medicine; Visit Provider Obstetrics & Gynecology
DX: Z12.31 Encounter for screening mammogram for malignant neoplasm of breast (principal)
CPT/HCPCS: 77063; 77067